=== PATIENT | male | born 1980 | race Caucasian/White ===

== ENCOUNTER 2017-04-01 17:36 | Emergency (ER) | payer SELFPAY ==
[2017-04-01] MEDS ORDERED: SOD CHLORIDE 0.9% 1,000 ML IV STA (17:42)
== END 2017-04-01 18:31 | disposition left against medical advice (07) ==
LOC: E/R 17:36
DX: Z53.21 Procedure and treatment not carried out due to patient leaving prior to being seen by health care provider (principal)
CPT/HCPCS: J7030